=== PATIENT | female | born 1970 | race African-American/Black ===

== ENCOUNTER 2021-11-26 13:18 | Inpatient (IN) | payer MEDICAID, OTHER ==
[~2021-11-26] VITALS: Ht 157.5 cm; Wt 115.0 kg
[~2021-11-26 13:18] MED LIST: CARI-493 PO; FAMO-39 PO; FLUO-177 PO; MEDR10TA11 PO; OLAN5TAB52 PO; PREG25 PO; TRAZ-252 PO; VICOT PO
[2021-11-26 13:38] LABS: BASOPHILS % (AUTO) 0.3 % (0.0-2.0); EOSINOPHILS % (AUTO) 1.7 % (1.0-6.0); HEMATOCRIT 32.7 % (36-46); HEMOGLOBIN 10.4 g/dL (12.0-16.0); LYMPHOCYTES # (AUTO) 2.6 K/uL (1.0-4.8); MEAN CORPUSCULAR HEMOGLOBIN 26.4 pg (26.0-34.0); MEAN CORPUSCULAR HGB CONC 31.7 G/dL (31.0-37.0); MEAN CORPUSCULAR VOLUME 83 fL (80-100); MONOCYTES # (AUTO) 0.5 K/uL (0.1-1.0); MONOCYTES % (AUTO) 6.5 % (2.0-9.0); NEUTROPHILS % (AUTO) 60.5 % (40.0-70.0); PLATELET COUNT (AUTO) 257 K/uL (150-450); RED BLOOD CELL COUNT(AUTO) 3.93 MIL/uL (4.00-5.20); RED CELL DISTRIBUTION WIDTH 14.2 % (11.5-14.5)
[2021-11-26 13:48] LABS: ANION GAP 8 mmol/L (8-16); CALCIUM, TOTAL 8.8 mg/dL (8.8-10.5); CARBON DIOXIDE 26 mmol/L (22-29); CHLORIDE 108 mmol/L (98-107); CREATININE 1.98 mg/dL (0.60-1.30); GLOMERULAR FILTR. RATE CALC 32 mL/min (>60); GLUCOSE,RANDOM 97 mg/dL (70-110); POTASSIUM 4.1 mmol/L (3.5-5.1); SODIUM SERUM 142 mmol/L (136-145); UREA NITROGEN, BLOOD 19 mg/dL (7-18)
[2021-11-26 13:59] LABS: ACETAMINOPHEN < 2 mcg/mL (10-30); ALANINE AMINOTRANSFERASE 15 U/L (12-78); ALBUMIN 3.3 g/dL (3.4-5.0); ALKALINE PHOSPHATASE 117 U/L (46-116); ASPARTATE AMINOTRANSFERASE 17 U/L (15-37); BILIRUBIN,TOTAL 0.4 mg/dL (0.1-1.0); HCG,QUANTITATIVE < 1 mIU/mL (0-6)
[2021-11-26 14:00] LABS: SALICYLATE 1.3 mg/dL (2.8-20.0)
[2021-11-26 14:04] LABS: APPEARANCE,URINE HAZY (CLEAR); BILIRUBIN,URINE NEGATIVE (NEGATIVE); GLUCOSE, URINE (UA) NEGATIVE (NEGATIVE); KETONES,URINE NEGATIVE (NEGATIVE); LEUKOCYTE ESTERASE ,URINE NEGATIVE (NEGATIVE); NITRATE,URINE NEGATIVE (NEGATIVE); OCCULT BLOOD,URINE NEGATIVE (NEGATIVE); PH,URINE 5.5 (5.0-8.0); PROTEIN,URINE TRACE mg/dL (NEGATIVE); SPECIFIC GRAVITIY, URINE 1.019 (1.003-1.030); UROBILINOGEN,URINE <=1.0 mg/dL (<=1.0)
[2021-11-26 14:11] LABS: AMPHET/METH SCREEN,URINE NEGATIVE (NEGATIVE); BARBITURATE SCREEN, URINE NEGATIVE (NEGATIVE); BENZODIAZEPINES SCREEN,URINE NEGATIVE (NEGATIVE); CANNABINOID SCREEN,URINE NEGATIVE (NEGATIVE); COCAINE SCREEN,URINE NEGATIVE (NEGATIVE); METHADONE SCREEN, URINE NEGATIVE (NEGATIVE); OPIATE SCREEN,URINE NEGATIVE (NEGATIVE); PHENCYCLIDINE SCREEN,URINE NEGATIVE (NEGATIVE)
[2021-11-26] MEDS ORDERED: LORazepam 2 MG TABLET PO ONE (14:15)
[2021-11-26] MEDS ORDERED: SODIUM CHLORIDE 0.9% 1,000 ML IV ONE ×2 (14:15→14:30)
[2021-11-26] MEDS ORDERED: HALOPERIDOL 5 MG TABLET PO ONE (14:15)
[2021-11-26 14:46] LABS: CREATINE KINASE, TOTAL ONLY 39 U/L (26-192)
[2021-11-26 14:52] LABS: COVID AG,FIA SOURCE NASOPHARYNGEAL
[2021-11-26] MEDS: ZOLPIDEM TARTRATE 10 MG TABLET PO PRN (20:06)
[2021-11-26] MEDS: HALOPERIDOL 5 MG TABLET PO PRN (23:31)
[2021-11-26] MEDS: LORazepam 2 MG TABLET PO PRN (23:31)
[2021-11-27] MEDS: LORazepam 2 MG TABLET PO PRN ×2 (10:12→16:52)
[2021-11-27 14:32] VITALS: BP 110/70
[2021-11-27] MEDS: TraMADol HCL 50 MG TABLET PO PRN (14:32)
[2021-11-27] MEDS ORDERED: BUPR-317 PO (14:50)
[2021-11-27] MEDS ORDERED: OLAN20TA35 PO (14:50)
[2021-11-27 16:03] VITALS: BP 136/66
[2021-11-27] MEDS ORDERED: GABA-1181 PO (16:14)
[2021-11-27] MEDS ORDERED: TIZA-211 PO (16:14)
[2021-11-27] MEDS ORDERED: BUPR1FIL SL (16:14)
[2021-11-27] MEDS ORDERED: CHOL25TA4 PO (16:14)
[2021-11-27] MEDS ORDERED: ACET-66 PO (16:14)
[2021-11-27] MEDS ORDERED: ZOLP10TA8 PO (16:14)
[2021-11-27] MEDS ORDERED: LAMO25TA25 PO (16:14)
[2021-11-27] MEDS ORDERED: ALBUTEROL SULFATE HFA 90 MCG/PUFF 8 GM INHALER IH PRN (19:15)
[2021-11-27] MEDS ORDERED: GuaiFENesin/D-METHORPHAN [SUGAR-FREE] 200-20MG/10 ML SYRUP UDCUP PO PRN (19:15)
[2021-11-27] MEDS ORDERED: ACETAMINOPHEN 325 MG TABLET PO PRN (19:15)
[2021-11-27] MEDS ORDERED: IBUPROFEN 400 MG TABLET PO PRN (19:15)
[2021-11-27] MEDS ORDERED: NICOTINE 14 MG/24 HOUR PATCH TD PRN (19:15)
[2021-11-27] MEDS ORDERED: MAG HYDROX/AL HYDROX/SIMETH ES 30 ML SUSPENSION UDCUP PO PRN (19:15)
[2021-11-27] MEDS ORDERED: LOPERAMIDE HCL 2 MG CAPSULE PO PRN (19:15)
[2021-11-27] MEDS ORDERED: CloNIDine HCL 0.1 MG TABLET PO PRN (19:15)
[2021-11-27] MEDS ORDERED: ONDANSETRON HCL 4 MG TABLET PO PRN (19:15)
[2021-11-27] MEDS ORDERED: PETROLATUM,WHITE 28 GM JELLY TP PRN (19:15)
[2021-11-27] MEDS ORDERED: DOCUSATE SODIUM 100 MG CAPSULE PO PRN (19:15)
[2021-11-27] MEDS ORDERED: MAGNESIUM HYDROXIDE SUSPENSION 30 ML UDCUP PO PRN (19:15)
[2021-11-27 20:20] VITALS: BP 139/95
[2021-11-27] MEDS: ZOLPIDEM TARTRATE 10 MG TABLET PO PRN (20:35)
[2021-11-27] MEDS: OLANZapine 10 MG TABLET PO SCH (20:36)
[2021-11-27 21:17] VITALS: BP 139/95
[2021-11-28] MEDS: AmLODIPine BESYLATE 2.5 MG TABLET PO SCH (08:17)
[2021-11-28] MEDS: BuPROPion HCL XL 150 MG ER TABLET PO SCH (08:17)
[2021-11-28 08:58] VITALS: BP 139/80
[2021-11-28 09:11] LABS: BASOPHILS % (AUTO) 0.4 % (0.0-2.0); EOSINOPHILS % (AUTO) 2.5 % (1.0-6.0); HEMATOCRIT 36.8 % (36-46); HEMOGLOBIN 11.8 g/dL (12.0-16.0); LYMPHOCYTES # (AUTO) 3.8 K/uL (1.0-4.8); LYMPHOCYTES % (AUTO) 30.4 % (22.0-44.0); MEAN CORPUSCULAR HEMOGLOBIN 26.4 pg (26.0-34.0); MEAN CORPUSCULAR HGB CONC 32.1 G/dL (31.0-37.0); MEAN CORPUSCULAR VOLUME 82 fL (80-100); MONOCYTES # (AUTO) 0.8 K/uL (0.1-1.0); MONOCYTES % (AUTO) 6.1 % (2.0-9.0); NEUTROPHILS # (AUTO) 7.6 K/uL (1.8-7.7); NEUTROPHILS % (AUTO) 60.6 % (40.0-70.0); PLATELET COUNT (AUTO) 277 K/uL (150-450); RED BLOOD CELL COUNT(AUTO) 4.47 MIL/uL (4.00-5.20); RED CELL DISTRIBUTION WIDTH 14.4 % (11.5-14.5)
[2021-11-28 09:45] LABS: CHOL/HDL RATIO 1.8 (3.9-5.7); FREE T4 (FREE THYROXINE) 1.22 ng/dL (0.76-1.46); THYROID STIMULATING HORMONE 1.05 uIU/mL (0.36-3.74)
[2021-11-28] MEDS: LORazepam 2 MG TABLET PO PRN ×2 (13:22→22:03)
[2021-11-28] MEDS: OLANZapine 10 MG TABLET PO SCH (20:23)
[2021-11-28] MEDS: ZOLPIDEM TARTRATE 10 MG TABLET PO PRN (20:34)
[2021-11-28] MEDS: HALOPERIDOL 5 MG TABLET PO PRN (22:03)
[2021-11-28 22:57] VITALS: BP 129/78
[2021-11-29 07:27] LABS: CALCIUM, TOTAL 8.7 mg/dL (8.8-10.5); CREATININE 1.51 mg/dL (0.60-1.30); POTASSIUM 4.1 mmol/L (3.5-5.1)
[2021-11-29] MEDS: AmLODIPine BESYLATE 2.5 MG TABLET PO SCH (08:17)
[2021-11-29] MEDS: BuPROPion HCL XL 150 MG ER TABLET PO SCH (08:17)
[2021-11-29] MEDS: TraMADol HCL 50 MG TABLET PO PRN (08:17)
[2021-11-29] MEDS: LORazepam 2 MG TABLET PO PRN ×2 (08:17→17:46)
[2021-11-29 08:40] VITALS: BP 153/9
[2021-11-29 09:07] VITALS: BP 120/60
[2021-11-29] MEDS ORDERED: DICLOFENAC SODIUM 1% 100 GM GEL [4GM] TP PRN (16:30)
[2021-11-29 20:11] VITALS: BP 134/80
[2021-11-29] MEDS: OLANZapine 10 MG TABLET PO SCH (20:28)
[2021-11-29] MEDS: ZOLPIDEM TARTRATE 10 MG TABLET PO PRN (20:28)
[2021-11-30] MEDS: TraMADol HCL 50 MG TABLET PO PRN (00:35)
[2021-11-30] MEDS: AmLODIPine BESYLATE 2.5 MG TABLET PO SCH (08:21)
[2021-11-30] MEDS: BuPROPion HCL XL 150 MG ER TABLET PO SCH (08:22)
[2021-11-30 08:26] VITALS: BP 140/91
[2021-11-30] MEDS: LORazepam 2 MG TABLET PO PRN (08:32)
[2021-11-30] MEDS ORDERED: GABAPENTIN 300 MG CAPSULE PO SCH (09:00)
[2021-11-30] MEDS ORDERED: GABA-1181 PO (16:05)
[2021-11-30] MEDS ORDERED: BUPR-50 PO (16:06)
[2021-11-30] MEDS ORDERED: AMLO2.5T96 PO (16:06)
[2021-12-01] MEDS ORDERED: BUPR-49 PO (06:58)
[2021-12-01] MEDS ORDERED: OLAN10TA74 PO (06:58)
== END 2021-11-30 16:35 | disposition home or self-care (01) | DRG 750 ==
LOC: EMS 13:20 → B3A 15:42
PROVIDERS: ADMIT Psychiatry & Neurology Psychiatry; ATTEND Psychiatry & Neurology Psychiatry
DX: F25.1 Schizoaffective disorder, depressive type (principal); N17.9 Acute kidney failure, unspecified; E55.9 Vitamin D deficiency, unspecified; R45.851 Suicidal ideations; F43.10 Post-traumatic stress disorder, unspecified; G62.9 Polyneuropathy, unspecified; D64.9 Anemia, unspecified; Z20.822 Contact with and (suspected) exposure to COVID-19; M19.90 Unspecified osteoarthritis, unspecified site; Z79.899 Other long term (current) drug therapy; Z98.84 Bariatric surgery status
CPT/HCPCS: 80048; 80053; 80061; 81003; 82550; 84439; 84443; 84702; 85025; 93005; 99285; G0480; G0481